=== PATIENT | female | born 2000 | race Caucasian/White ===

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

== ENCOUNTER → 2021-04-07 | Outpatient (CLI) | payer OTHER ==
--- NOTE | 2021-04-08 03:26 | REP ---
INDICATION: PAIN COMPARISON: None. TECHNIQUE: AP, lateral, bilateral oblique, and coned-down views of the lumbar spine. FINDINGS: Alignment and lordosis maintained. Vertebral bodies are intact. No acute fracture/compression injury or subluxation. Disc spaces are relatively normal/age-appropriate. No obvious spondylolysis or spondylolisthesis. IMPRESSION: Normal Lumbosacral Spine series. <Electronically signed by Wesley Stevens > 04/08/21 [id number]
--- NOTE | 2021-04-08 03:26 | REP ---
INDICATION: PAIN COMPARISON: None. TECHNIQUE: Four views of the bilateral sacroiliac joints. FINDINGS: Sacroiliac joints are symmetric and age-appropriate. No evidence for acute or healed injury. No significant degenerative changes or congenital abnormalities noted. IMPRESSION: 1. Normal bilateral sacroiliac joints. <Electronically signed by Wesley Stevens > 04/08/21 [id number]
--- NOTE | 2021-04-08 03:27 | REP ---
INDICATION: PAIN COMPARISON: None. TECHNIQUE: AP, lateral, bilateral oblique views left hand. FINDINGS: The osseous structures and joint spaces are intact and normal. There is no evidence for acute or healed injury. Surrounding soft tissues are unremarkable. No subcutaneous emphysema or radiodense foreign body. No obvious congenital abnormalities noted. IMPRESSION: Normal age-appropriate left hand radiograph series. <Electronically signed by Wesley Stevens > 04/08/21 [id number]
== END ==
LOC: M WUC 15:23
PROVIDERS: ATTEND Family Medicine
DX: M79.645 Pain in left finger(s) (principal); S39.012A Strain of muscle, fascia and tendon of lower back, initial encounter; W18.30XA Fall on same level, unspecified, initial encounter; Y92.009 Unspecified place in unspecified non-institutional (private) residence as the place of occurrence of the external cause

== ENCOUNTER 2023-10-06 13:41 | Emergency (ER) | payer OTHER ==
[~2023-10-06] VITALS: Ht 152.4 cm; Wt 49.3 kg
[2023-10-06 15:35] VITALS: BP 120/86; TEMP 98; O2SAT 100
== END 2023-10-06 15:38 | disposition home or self-care (01) ==
LOC: M ED 13:41
DX: S50.11XA Contusion of right forearm, initial encounter (principal); Y92.019 Unspecified place in single-family (private) house as the place of occurrence of the external cause; Y93.9 Activity, unspecified; Y99.9 Unspecified external cause status